=== PATIENT | male | born 1990 | race African-American/Black ===

== ENCOUNTER 2021-12-15 18:54 | Emergency (ER) | payer MEDICAID ==
--- NOTE | 2021-12-15 19:56 | NUR ---
called no show.
--- NOTE | 2021-12-15 20:29 | NUR ---
called second time no show
--- NOTE | 2021-12-15 21:51 | NUR ---
PATIENT LEFT WITHOUT BEING SEEN BY DR. CORBIN. NO FURTHER CARE PROVIDED FOR PATIENT.
--- NOTE | 2021-12-15 21:51 | NUR ---
Juanjose quigley in [facility] - 12/16/21 at [id number] by [id number] Patient LWBS.
== END 2021-12-15 21:51 | disposition left against medical advice (07) ==
LOC: MED 18:54
DX: K64.9 Unspecified hemorrhoids (principal); Z53.21 Procedure and treatment not carried out due to patient leaving prior to being seen by health care provider